=== PATIENT | male | born 1975 | race Hispanic/Latino ===

== ENCOUNTER 2022-03-20 11:24 | Emergency (ER) | payer BC ==
[~2022-03-20] VITALS: Ht 175.3 cm; Wt 131.5 kg
[2022-03-20] MEDS: FAMOTIDINE 20MG VIAL IV ONE ×2 (11:35→11:55)
[2022-03-20] MEDS: SOLU-MEDROL 125MG VIAL IVP ONE (11:35)
[2022-03-20] MEDS: SOLU-MEDROL 125MG VIAL ONE (11:54)
[2022-03-20 13:59] VITALS: BP 108/66
[2022-03-20] MEDS ORDERED: PRED20TA3 PO ×2 (15:48→15:51)
[2022-03-20] MEDS ORDERED: FAMO-136 PO (15:48)
[2022-03-20] MEDS ORDERED: DIPH25 PO (15:48)
[2022-03-20] MEDS ORDERED: EPIN0.3P3 IJ (15:54)
== END 2022-03-20 16:05 | disposition home or self-care (01) ==
LOC: EDH 11:24
DX: T63.441A Toxic effect of venom of bees, accidental (unintentional), initial encounter (principal); R11.2 Nausea with vomiting, unspecified; I10 Essential (primary) hypertension; Y92.89 Other specified places as the place of occurrence of the external cause
CPT/HCPCS: 99284; 96374; 96375; 93005; J3490; J2930